=== PATIENT | female | born 1980 | race Hispanic/Latino ===

== ENCOUNTER 2018-01-16 23:03 | Emergency (ER) | payer OTHER ==
[2018-01-17] MEDS ORDERED: DICYCLOMINE HCL 10 MG/ML 2ML AMP IM ONE (00:23)
[2018-01-17] MEDS ORDERED: ONDANSETRON ODT 4 MG TAB ONE (00:24)
== END 2018-01-17 01:31 | disposition home or self-care (01) ==
LOC: EDH 23:03
DX: K52.9 Noninfective gastroenteritis and colitis, unspecified (principal)
CPT/HCPCS: 96372; 99283; J0500